=== PATIENT | female | born 1990 | race Caucasian/White ===

== ENCOUNTER 2019-03-14 09:59 | Emergency (ER) | payer OTHER ==
[~2019-03-14] VITALS: Ht 154.9 cm; Wt 52.7 kg
[2019-03-14] MEDS ORDERED: LIDOCAINE 5% (LIDODERM) PATCH TD ONE (11:45)
--- NOTE | 2019-03-14 12:17 | REP ---
Thoracic spine three views: Vertebral body heights, interspacing alignment are normal. Mineralization is normal. The pedicles are unremarkable. There is no compression deformity or listhesis. Impression: Negative thoracic spine. Electronically Signed by Héctor Shipley MD 03/14/2019 12:08 P
[2019-03-14 12:29] VITALS: BP 97/55
[2019-03-14] MEDS ORDERED: LIDO5DIS41 TOP (12:43)
[2019-03-14] MEDS ORDERED: CYCL10TA PO (12:43)
[2019-03-14] MEDS ORDERED: NEUR300C PO (12:43)
[2019-03-14] MEDS ORDERED: **NOTE PATIENT COMMENT** MISC XX SCH (21:00)
== END 2019-03-14 12:55 | disposition home or self-care (01) ==
LOC: M ED 09:59
DX: M54.9 Dorsalgia, unspecified (principal); F17.200 Nicotine dependence, unspecified, uncomplicated

== ENCOUNTER 2020-01-07 15:15 | Emergency (ER) | payer OTHER ==
[~2020-01-07] VITALS: Ht 154.9 cm; Wt 52.3 kg
[~2020-01-07 15:15] MED LIST: CYCL-707 PO; LIDO5DIS41 TOP; NEUR300C PO
[2020-01-07] MEDS ORDERED: BUPREN-NALOX OR (15:42)
[2020-01-07 16:01] LABS: HEMATOCRIT 40.3 % (36.0-47.0); HEMOGLOBIN 13.4 g/dl (12.0-15.5); MEAN CORPUSCULAR HEMOGLOBIN 29.5 pg (27.0-33.0); MEAN CORPUSCULAR HGB CONC 33.3 g/dl (32.0-36.5); MEAN CORPUSCULAR VOLUME 88.6 fl (80.0-96.0); PLATELET COUNT, AUTOMATED 323 10^3/uL (150-450); RED BLOOD COUNT 4.55 10^6/uL (4.00-5.40); WHITE BLOOD COUNT 9.3 10^3/uL (4.0-10.0)
[2020-01-07 16:33] LABS: AMPHETAMINES LEVEL URINE NEGATIVE (NEGATIVE); BARBITURATES URINE NEGATIVE (NEGATIVE); BENZODIAZEPINES URINE POSITIVE (NEGATIVE); CANNABINOIDS URINE POSITIVE (NEGATIVE); COCAINE METABOLITE URINE NEGATIVE (NEGATIVE); METHADONE URINE NEGATIVE (NEGATIVE); OPIATES URINE NEGATIVE (NEGATIVE); PHENCYCLIDINE URINE NEGATIVE (NEGATIVE)
[2020-01-07 16:54] LABS: ACETAMINOPHEN LEVEL < 2.0 UG/ML (10.0-30.0); ALBUMIN 4.5 GM/DL (3.2-5.2); ALT/SGPT 16 U/L (12-78); BILIRUBIN,DIRECT 0.2 MG/DL (0.0-0.2); BILIRUBIN,TOTAL 0.7 MG/DL (0.2-1.0); BLOOD UREA NITROGEN 16 MG/DL (7-18); CALCIUM LEVEL 9.2 MG/DL (8.5-10.1); CARBON DIOXIDE LEVEL 24 MEQ/L (21-32); CHLORIDE LEVEL 108 MEQ/L (98-107); CREATININE FOR GFR 0.78 MG/DL (0.55-1.30); ETHYL ALCOHOL (ETHANOL) < 0.003 % (0.000-0.010); GLOMERULAR FILTRATION RATE > 60.0 (>60); GLUCOSE, FASTING 101 MG/DL (70-100); SALICYLATE LEVEL < 1.7 MG/DL (5.0-30.0); SODIUM LEVEL 139 MEQ/L (136-145); TOTAL PROTEIN 7.9 GM/DL (6.4-8.2)
[2020-01-07] MEDS ORDERED: GABA-843 PO (19:59)
[2020-01-07] MEDS ORDERED: BUPREN-NALOX SL (19:59)
[2020-01-07] MEDS ORDERED: ALPRAZolam 0.5 MG TAB PO ONE (21:15)
[2020-01-07] MEDS ORDERED: HALOPERIDOL 5MG/ML VIAL (J1630 PER 1) IM ONE (21:15)
[2020-01-07] MEDS ORDERED: diphenhydrAMINE 50MG/ML VIAL (J1200) IM ONE (21:15)
[2020-01-07] MEDS ORDERED: LORazepam 2 MG/ML VIAL IM ONE (21:15)
[2020-01-08] MEDS ORDERED: ALPRAZolam 0.5 MG TAB PO ONE ×2 (04:15→17:30)
--- NOTE | 2020-01-08 04:22 | ECGEPIP ---
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
[2020-01-08] MEDS ORDERED: GABA-1171 PO (07:29)
[2020-01-08] MEDS ORDERED: BUPRENORPHINE/NALOXONE 8-2MG SUBLINGUAL TABLET(SUBOXONE) SL SCH (09:00)
[2020-01-08] MEDS: GABAPENTIN 100 MG CAP PO SCH ×3 (09:33→22:07)
[2020-01-08] MEDS ORDERED: GABAPENTIN 100 MG CAP PO SCH (16:00)
[2020-01-08 22:09] VITALS: BP 109/65
[2020-01-09] MEDS ORDERED: BUPRENORPHINE/NALOXONE 8-2MG SUBLINGUAL TABLET(SUBOXONE) SL SCH (09:00)
== END 2020-01-08 22:16 ==
LOC: M ED 15:15
DX: F32.9 Major depressive disorder, single episode, unspecified (principal); F60.9 Personality disorder, unspecified; R45.851 Suicidal ideations; J45.909 Unspecified asthma, uncomplicated
CPT/HCPCS: 80048; 80076; 80307; 84443; 85027; 93005; 96372; 99285; G0480; J1200; J1630; J2060; U0002

== ENCOUNTER 2021-04-14 17:50 | Emergency (ER) | payer OTHER ==
[~2021-04-14] VITALS: Ht 154.9 cm; Wt 54.8 kg
[~2021-04-14 17:50] MED LIST changes: +BUPREN-NALOX OR; +BUPREN-NALOX SL; +GABA-1171 PO; +GABA-282 PO
[2021-04-14] MEDS ORDERED: ACETAMINOPHEN TAB 650MG DOSE (2X325MG) PO ONE (20:05)
[2021-04-14 21:19] VITALS: BP 116/76
== END 2021-04-14 21:21 | disposition home or self-care (01) ==
LOC: M ED 17:50
DX: S01.01XA Laceration without foreign body of scalp, initial encounter (principal); W22.8XXA Striking against or struck by other objects, initial encounter; Y92.018 Other place in single-family (private) house as the place of occurrence of the external cause; Z88.5 Allergy status to narcotic agent

== ENCOUNTER 2021-05-02 14:18 | Inpatient (IN) | payer OTHER ==
[~2021-05-02] VITALS: Ht 162.6 cm; Wt 53.6 kg
[2021-05-02 15:29] LABS: HEMATOCRIT 40.2 % (36.0-47.0); HEMOGLOBIN 13.4 g/dl (12.0-15.5); MEAN CORPUSCULAR HEMOGLOBIN 28.9 pg (27.0-33.0); MEAN CORPUSCULAR HGB CONC 33.3 g/dl (32.0-36.5); MEAN CORPUSCULAR VOLUME 86.6 fl (80.0-96.0); PLATELET COUNT, AUTOMATED 403 10^3/uL (150-450); RED BLOOD COUNT 4.64 10^6/uL (4.00-5.40); WHITE BLOOD COUNT 9.8 10^3/uL (4.0-10.0)
[2021-05-02 15:49] LABS: AMPHETAMINES LEVEL URINE POSITIVE (NEGATIVE); BARBITURATES URINE NEGATIVE (NEGATIVE); BENZODIAZEPINES URINE NEGATIVE (NEGATIVE); CANNABINOIDS URINE POSITIVE (NEGATIVE); COCAINE METABOLITE URINE NEGATIVE (NEGATIVE); METHADONE URINE NEGATIVE (NEGATIVE); OPIATES URINE NEGATIVE (NEGATIVE); PHENCYCLIDINE URINE NEGATIVE (NEGATIVE)
[2021-05-02 16:03] LABS: ACETAMINOPHEN LEVEL < 2.0 UG/ML (10.0-30.0); ALBUMIN 4.1 GM/DL (3.2-5.2); ALT/SGPT 23 U/L (12-78); BILIRUBIN,DIRECT 0.2 MG/DL (0.0-0.2); BILIRUBIN,TOTAL 0.5 MG/DL (0.2-1.0); BLOOD UREA NITROGEN 12 MG/DL (7-18); CALCIUM LEVEL 9.3 MG/DL (8.5-10.1); CARBON DIOXIDE LEVEL 28 MEQ/L (21-32); CHLORIDE LEVEL 105 MEQ/L (98-107); CREATININE FOR GFR 0.78 MG/DL (0.55-1.30); ETHYL ALCOHOL (ETHANOL) < 0.003 % (0.000-0.010); GLOMERULAR FILTRATION RATE > 60.0 (>60); GLUCOSE, FASTING 94 MG/DL (70-100); POTASSIUM SERUM 3.9 MEQ/L (3.5-5.1); SALICYLATE LEVEL < 1.7 MG/DL (5.0-30.0); SODIUM LEVEL 137 MEQ/L (136-145); TOTAL PROTEIN 7.8 GM/DL (6.4-8.2)
[2021-05-02 16:20] LABS: RSV AMPLIFICATION NEGATIVE (NEGATIVE)
[2021-05-02] MEDS ORDERED: ARIP1TAB6 PO (18:29)
[2021-05-02] MEDS ORDERED: LEXA1TAB2 PO (18:29)
[2021-05-02] MEDS ORDERED: BUPR1FIL SL (18:29)
[2021-05-02] MEDS ORDERED: GABA-1171 PO (18:29)
[2021-05-02] MEDS ORDERED: HOME MED LIST COMPLETE! XX SCH (18:30)
[2021-05-02] MEDS ORDERED: ACETAMINOPHEN TAB 650MG DOSE (2X325MG) PO PRN (20:35)
[2021-05-02] MEDS ORDERED: MAALOX 30 ML SUSP *UDC PO PRN (20:35)
[2021-05-02] MEDS ORDERED: traZODone 50 MG TAB PO PRN (20:35)
[2021-05-02] MEDS ORDERED: OLANZapine ORAL DISINTEGRATING TAB 5MG PO PRN (20:35)
[2021-05-02] MEDS ORDERED: MOM 30ML SUSPENSION UDC PO PRN (20:35)
[2021-05-02 22:55] VITALS: BP 118/71
[2021-05-03 06:48] VITALS: BP 93/52
[2021-05-03] MEDS: SERTRALINE HCL 25 MG TABLET PO SCH (09:00)
[2021-05-03] MEDS: NICOTINE 21MG/24HR 1 EA TRANSDERMAL TD SCH (09:00)
[2021-05-03] MEDS: OLANZapine ORAL DISINTEGRATING TAB 5MG PO PRN (18:19)
[2021-05-03] MEDS ORDERED: OLANZapine 5 MG TAB PO SCH (21:00)
[2021-05-03] MEDS ORDERED: OLANZapine 10 MG TAB PO SCH (21:00)
[2021-05-03] MEDS ORDERED: diphenhydrAMINE 50MG CAP PO ONE (23:00)
[2021-05-03] MEDS ORDERED: OLANZapine ORAL DISINTEGRATING TAB 5MG PO ONE (23:00)
[2021-05-04 07:00] VITALS: BP 116/63
[2021-05-04] MEDS: SERTRALINE HCL 25 MG TABLET PO SCH (09:00)
[2021-05-04] MEDS: NICOTINE 21MG/24HR 1 EA TRANSDERMAL TD SCH (09:00)
[2021-05-04] MEDS: OLANZapine 10 MG TAB PO SCH ×2 (09:00→22:28)
[2021-05-04] MEDS ORDERED: diphenhydrAMINE 50MG CAP PO ONE (14:00)
[2021-05-04] MEDS: OLANZapine ORAL DISINTEGRATING TAB 5MG PO PRN (17:39)
[2021-05-04] MEDS: cloNIDine 0.1MG TABLET PO PRN (17:39)
[2021-05-05] MEDS: OLANZapine ORAL DISINTEGRATING TAB 5MG PO PRN ×2 (04:59→16:40)
[2021-05-05] MEDS: cloNIDine 0.1MG TABLET PO PRN ×2 (05:01→16:08)
[2021-05-05 06:39] VITALS: BP 112/60
[2021-05-05] MEDS: SERTRALINE HCL 25 MG TABLET PO SCH (09:00)
[2021-05-05] MEDS: NICOTINE 21MG/24HR 1 EA TRANSDERMAL TD SCH (09:00)
[2021-05-05] MEDS: OLANZapine 10 MG TAB PO SCH ×2 (09:00→21:28)
[2021-05-05 16:08] VITALS: BP 111/71
[2021-05-05 16:28] VITALS: BP 111/71
[2021-05-05] MEDS ORDERED: ONDANSETRON 4MG TAB PO ONE (16:35)
[2021-05-06 06:13] VITALS: BP 96/52
[2021-05-06] MEDS ORDERED: NICO21PAT TD (07:53)
[2021-05-06] MEDS ORDERED: SERT25TA21 PO (07:53)
[2021-05-06] MEDS: NICOTINE 21MG/24HR 1 EA TRANSDERMAL TD SCH (09:00)
[2021-05-06] MEDS: OLANZapine 10 MG TAB PO SCH (09:13)
[2021-05-06] MEDS: SERTRALINE HCL 25 MG TABLET PO SCH (09:13)
== END 2021-05-06 11:40 | disposition home or self-care (01) | DRG 753 ==
LOC: M ED 14:18 → M ED INP 20:35 → M PSY 22:25
PROVIDERS: ADMIT Psychiatry & Neurology Psychiatry; ATTEND Psychiatry & Neurology Psychiatry
DX: F39 Unspecified mood [affective] disorder (principal); F15.90 Other stimulant use, unspecified, uncomplicated; F12.10 Cannabis abuse, uncomplicated; Z20.822 Contact with and (suspected) exposure to COVID-19; R45.851 Suicidal ideations; Z79.899 Other long term (current) drug therapy; Z88.5 Allergy status to narcotic agent; F11.11 Opioid abuse, in remission

== ENCOUNTER 2021-07-10 19:54 | Emergency (ER) | payer OTHER ==
[~2021-07-10] VITALS: Ht 154.9 cm; Wt 51.4 kg
[2021-07-10 19:54] VITALS: BP 122/79
[~2021-07-10 19:54] MED LIST changes: +ARIP1TAB6 PO; +BUPR1FIL SL; +LEXA1TAB2 PO; +NICO21PAT TD; +SERT25TA21 PO
[2021-07-10] MEDS ORDERED: SUBO8MIS SL (20:11)
== END 2021-07-11 04:32 | disposition left against medical advice (07) ==
LOC: M ED 19:54
DX: Z53.21 Procedure and treatment not carried out due to patient leaving prior to being seen by health care provider (principal)